=== PATIENT | male | born 1985 | race Caucasian/White ===

== ENCOUNTER 2021-05-05 11:23 | Emergency (ER) | payer OTHER, SELFPAY ==
[2021-05-05 11:34] VITALS: BP 118/69; PULSE 76; RESP 16; TEMP 37.3; O2SAT 100
--- NOTE | 2021-05-05 13:03 | ED.GENADULT ---
HPI - General Adult General Chief complaint: Ear Stated complaint: ear pain Time Seen by Provider: 05/05/21 13:03 Source: patient and RN notes reviewed Mode of arrival: ambulatory Limitations: no limitations History of Present Illness HPI narrative: 35-year-old male presents with complaints of right ear redness, swelling, painful, itching, and intermittent drainage for the past 2 days. ?Barry reports he has recurrent RT ear infection and last episode was October 2020 in which he received ear drop and po antibiotics for treatment. ?Reports called the PMD office twice on 05/04/2021 and only received ear drops for the problem, he confirmed this today with his pharmacy prior to coming to [facility] care today. ?No treatment started at this time, ear drops here with Barry at this time. ?Denies swimming or getting water into the ear. ?Denies trouble hearing. ?Denies URI symptoms. ?No high fevers or chills. ?Denies injury to the RT ear. ?Reported infection only affects RT ear. ?No nasal drainage and congestion. ?Denies nausea, vomiting, tinnitus, and dizziness. ?Remains active. ?The patient reports he has not been diagnosed with COVID-19. ?The patient reports he received 2 Pfizer COVID-19 vaccines. ?The patient reports he is not waiting for the results of a COVID-19 lab test. ?The patient reports he does not have weakness, fatigue, or myalgia. The patient reports he does not have a new or worsening cough or shortness of breath. ?The patient reports he does not have any rhinorrhea, congestion, loss of taste, sore throat, and diarrhea. ?Denies recent traveling. Denies concerns for COVID-19 or exposures. ?At this time, the patient is not suspected of having COVID-19. Some parts of this dictation were generated by voice recognition software and may contain typographical and/or grammatical inaccuracies. Related Data Home Medications Medication Instructions Recorded Confirmed Zyrtec 05/05/21 ciprofloxacin-dexamethasone drp 05/05/21 Allergies Allergy/AdvReac Type Severity Reaction Status Date / Time cefaclor Allergy Unknown Verified 11/15/14 15:28 Sulfa (Sulfonamide Allergy Unknown Verified 11/15/14 15:27 Antibiotics) thimerosal Allergy Unknown Verified 11/15/14 15:28 Review of Systems Review of Systems: CONSTITUTIONAL: Denies fever, chills, sweats. EYES: Denies visual changes, redness, discharge. ENT: Denies rhinorrhea, congestion, sore throat otalgia. Complains of RT ear redness, swelling, painful, itching, and intermittent drainage. CARDIOVASCULAR: Denies chest pain, palpitations, edema. RESPIRATORY: Denies dyspnea, wheezing, cough. GASTROINTESTINAL: Denies abdominal pain, nausea, vomiting, diarrhea. GENITOURINARY: Denies dysuria, hematuria, abnormal discharge. SKIN: Complains of RT ear redness, swelling, painful, itching, and intermittent drainage. Denies any other rash or itching. MUSCULOSKELETAL: Denies acute back pain, joint pain, or myalgia. NEUROLOGIC: Denies numbness or focal weakness. PSYCHIATRIC: Denies anxiety or depression. All systems reviewed & are unremarkable except as noted in HPI and below. [facility] Past Medical History Medical History (Updated 05/05/21 @ 15:10 by REGINA Morales) Allergic rhinitis Asthma Chronic ear infection Surgical History Surgical History (Updated 05/05/21 @ 13:20 by REGINA Morales) No significant past surgical history Family History Family History Father Hypertension Mother Hypertension Social History Social History (Updated 05/05/21 @ 13:21 by REGINA Morales) Smoking status: Former smoker Tobacco type: cigarettes Second hand tobacco smoke exposure: No Smoking end date: 09/29/07 Alcohol intake: current Substance use: never Substance use type: does not use Living arrangements: with family Occupation/Education: occupation Gender identity (if verbalized by the patient
== END 2021-05-05 13:25 | disposition home or self-care (01) ==
PROVIDERS: Emergency Provider Nurse Practitioner Family; PCP Family Medicine
DX: H60.311 Diffuse otitis externa, right ear (principal); J45.909 Unspecified asthma, uncomplicated
CPT/HCPCS: 99213; G0463

== ENCOUNTER 2024-08-10 07:22 | Outpatient (CLI) | payer OTHER, SELFPAY ==
[2024-08-10 08:14] LABS: Mean Corpuscular HGB Conc 34.9 g/dl (32-36); Mean Platelet Volume 11.8 fl (7.4-10.4); Platelet Count Result 163 k/mm3 (150-375); Red Cell Distribution Width 12.6 % (11.5-14.5); White Blood Count 4.6 K/mm3 (4.5-10.0)
[2024-08-10 08:19] LABS: Add Urine Microscopic? NO; Appearance Urine Clear (Clear); Bilirubin Urine Negative (Negative); Blood Urine Negative (Negative); Color Urine Yellow (Yellow); Glucose Urine UA Negative (Negative); Ketones Urine Negative (Negative); Leukocyte Esterase Ur Negative LEU/UL (Negative); Nitrate Urine Negative (Negative); Protein Urine Negative (Negative); Specific Grav Ur 1.019 (1.001-1.035)
[2024-08-10 08:30] LABS: Alanine Aminotransferase 14 U/L (6-50); Albumin Level 4.5 g/dL (3.5-5.1); Alkaline Phosphatase 54 U/L (38-126); Anion Gap 8 mmol/L (4-12); Aspartate Amino Transferase 22 U/L (17-59); Bilirubin,Total 1.3 mg/dL (0.2-1.3); Blood Urea Nitrogen 16 mg/dL (9-20); Calcium 9.5 mg/dL (8.4-10.2); Carbon Dioxide 28 mmol/L (22-30); Chloride 104 mmol/L (98-107); Cholesterol 163 mg/dL (0-200); Estimated Glomerular Filt Rate > 60; Glucose 93 mg/dL (65-110); HDL Direct 54 mg/dL; Sodium 140 mmol/L (137-145); Triglycerides 74 mg/dL (<150)
[2024-08-10 08:40] LABS: LDL Cholesterol Direct 78 mg/dL
== END 2024-08-10 07:23 | disposition home or self-care (01) ==
LOC: ANHLAB 07:24
PROVIDERS: PCP Family Medicine; Visit Provider Physician Assistant
DX: Z00.00 Encounter for general adult medical examination without abnormal findings (principal)
CPT/HCPCS: 36415; 80053; 80061; 81003; 84443; 85027